=== PATIENT | male | born 1935 | race Hispanic/Latino ===

== ENCOUNTER 2017-09-03 05:18 | Emergency (ER) | payer MEDICARE ==
[~2017-09-03] VITALS: Ht 162.6 cm; Wt 74.8 kg
[~2017-09-03 05:18] MED LIST: AVODART0.5 MG PO; CRESTOR10 MG PO; DIPHENHYDRAMINE25 M2 PO; LISINOPRIL2.5 MG PO; METFORMIN HCL500 M1 PO; METOPROLOL SUCC50 MG PO; OMEPRAZOLE40 MG PO; OXYBUTYNIN CHLOR5 MG PO; PLAVIX75 MG PO
[2017-09-03] MEDS ORDERED: METOPROLOL TART25 MG PO (05:35)
[2017-09-03] MEDS ORDERED: ASPIRIN81 MG PO (05:35)
[2017-09-03] MEDS ORDERED: FOLIC ACID1 MG PO (05:35)
[2017-09-03] MEDS ORDERED: DOXAZOSIN MESYLA2 MG PO (05:35)
[2017-09-03] MEDS ORDERED: NAPROXEN250 MG PO (05:35)
[2017-09-03 06:07] LABS: BILIRUBIN,URINE NEGATIVE (NEGATIVE); CLARITY,URINE CLEAR (CLEAR); COLOR,URINE YELLOW (YELLOW); KETONES,URINE NEGATIVE (NEGATIVE); LEUKOCYTE ESTERASE ,URINE 1+ (NEGATIVE); NITRITE,URINE NEGATIVE (NEGATIVE); PROTEIN,URINE DIPSTICK NEGATIVE (NEGATIVE); URINE UROBILINOGEN 1 mg/dL (0.2 - 1)
[2017-09-03 06:16] LABS: EPITHELIAL CELLS,URINE RARE /LPF
[2017-09-03 06:17] LABS: RBC,URINE 0-5 /HPF (0-5); TRANSITIONAL EPI CELLS,URINE RARE
[2017-09-03 06:24] VITALS: BP 172/81
== END 2017-09-03 06:38 | disposition home or self-care (01) ==
LOC: ER 05:18
DX: R30.0 Dysuria (principal); N30.90 Cystitis, unspecified without hematuria; I10 Essential (primary) hypertension; E11.9 Type 2 diabetes mellitus without complications; Z86.73 Personal history of transient ischemic attack (TIA), and cerebral infarction without residual deficits
CPT/HCPCS: 81001; 87086; 99283

== ENCOUNTER 2017-10-23 06:54 | Emergency (ER) | payer MEDICARE ==
[~2017-10-23] VITALS: Ht 162.6 cm; Wt 74.8 kg
[~2017-10-23 06:54] MED LIST changes: +ASPIRIN81 MG PO; +DOXAZOSIN MESYLA2 MG PO; +FOLIC ACID1 MG PO; +METOPROLOL TART25 MG PO; +NAPROXEN250 MG PO
[2017-10-23 07:34] LABS: BASOPHILS % 0.5 % (0.0-1.0); EOSINOPHILS # (AUTO) 0.2 (0.0-0.4); HEMATOCRIT 33.9 % (38.2-49.6); HEMOGLOBIN 11.2 g/dL (14.0-18.0); LYMPHOCYTES % 15.4 % (18.0-39.1); MEAN CORPUSCULAR HEMOGLOBIN 30.9 pg (28-32); MEAN CORPUSCULAR VOLUME 93.6 fL (81-99); MONOCYTES # (AUTO) 0.5 (0.2-0.8); NEUTROPHILS # (AUTO) 4.7 (2.1-6.9); NEUTROPHILS % 73.9 % (38.7-80.0); PLATELET COUNT 188 x10e3/uL (140-360); RED BLOOD COUNT 3.62 x10e6/uL (4.3-5.7); RED CELL DISTRIBUTION WIDTH 13.8 % (11.7-14.4)
[2017-10-23 07:48] LABS: CLARITY,URINE CLEAR (CLEAR); COLOR,URINE YELLOW (YELLOW)
[2017-10-23 07:49] LABS: BILIRUBIN,URINE NEGATIVE (NEGATIVE); KETONES,URINE TRACE (NEGATIVE); LEUKOCYTE ESTERASE ,URINE NEGATIVE (NEGATIVE); NITRITE,URINE NEGATIVE (NEGATIVE); PROTEIN,URINE DIPSTICK NEGATIVE (NEGATIVE); URINE UROBILINOGEN 1 mg/dL (0.2 - 1)
[2017-10-23 07:50] LABS: BACTERIA,URINE RARE /HPF; EPITHELIAL CELLS,URINE FEW /LPF; WBC,URINE (MAN) 0-5 /HPF (0-5)
[2017-10-23 07:54] LABS: ANION GAP 14.5 mmol/L (8-16); BLOOD UREA NITROGEN 13 mg/dL (7-26); BUN/CREATININE RATIO 15 (6-25); CALCIUM 9.1 mg/dL (8.4-10.2); CARBON DIOXIDE 21 mmol/L (22-29); CHLORIDE 109 mmol/L (98-107); CREATININE, SERUM 0.87 mg/dL (0.72-1.25); EST GLOMERULAR FILTRATION RATE > 60 ML/MIN (60-); GLUCOSE 125 mg/dL (74-118); POTASSIUM 3.5 mmol/L (3.5-5.1); SODIUM 141 mmol/L (136-145)
[2017-10-23] MEDS ORDERED: FLOMAX0.4 MG PO (08:44)
--- NOTE | 2017-10-23 09:56 | Diagnostic Imaging Report ---
PROCEDURE: CT ABDOMEN AND PELVIS WITH CONTRAST TECHNIQUE: The abdomen and pelvis were scanned utilizing a multidetector helical scanner from the diaphragm to the lesser trochanter after the IV administration of 100 cc of Isovue 370 and the oral administration of water. Coronal and sagittal multiplanar reformations were obtained. Dose reduction parameters were utilized. DLP: 586.84 mGy-cm COMPARISON: None. INDICATIONS: ABDOMEN PAIN FINDINGS: LOWER THORAX: Incompletely visualized right basilar opacity likely secondary to atelectasis. HEPATOBILIARY: No focal hepatic lesions. No biliary ductal dilatation. SPLEEN: No splenomegaly. PANCREAS: No focal masses or ductal dilatation. 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 KIDNEYS/URETERS: No hydronephrosis, stones or solid mass lesions. Right posterior interpole renal cyst. Exophytic cystic lesion involving the left lower pole is too small to characterize but also likely a cyst. PELVIC ORGANS/BLADDER: There is a Scott catheter within the bladder. PERITONEUM / RETROPERITONEUM: No free air or fluid. LYMPH NODES: No lymphadenopathy. VESSELS: Atherosclerotic calcification. Accessory right renal artery. GI TRACT: No distention or wall thickening. BONES AND SOFT TISSUES: Degenerative changes of the spine. IMPRESSION: 1. Fat containing right adrenal mass compatible with a benign process. 2. Multiple renal cystic lesions. 3. No acute abdominal or pelvic abnormality. Steve Solorio D.O. Dictated by: Steve Solorio D.O. on 10/23/2017 at 10:02 Electronically approved by: Steve Solorio D.O. on 10/23/2017 at 10:02
[2017-10-23] MEDS ORDERED: SODIUM CHLORIDE 0.9% 50ML 50 ML ONE (14:28)
[2017-10-23] MEDS ORDERED: IOPAMIDOL 370 MG/ML 200 ML INFUS..BTL INJ ONE (14:29)
== END 2017-10-23 10:37 | disposition home or self-care (01) ==
LOC: ER 06:54
DX: R10.30 Lower abdominal pain, unspecified (principal); R30.0 Dysuria; R33.9 Retention of urine, unspecified; N40.1 Benign prostatic hyperplasia with lower urinary tract symptoms
CPT/HCPCS: 36415; 51700; 74177; 80048; 81001; 85025; 87086; 99284; Q9967

== ENCOUNTER 2017-11-02 08:14 | Emergency (ER) | payer MEDICARE ==
[~2017-11-02] VITALS: Ht 162.6 cm; Wt 74.8 kg
[~2017-11-02 08:14] MED LIST changes: +FLOMAX0.4 MG PO
[2017-11-02] MEDS ORDERED: SODIUM CHLORIDE 0.9% 1000ML 1,000 ML IV STA (08:42)
[2017-11-02] MEDS ORDERED: MORPHINE SULFATE 2 MG/ML SYR IV STA (08:42)
[2017-11-02] MEDS ORDERED: ONDANSETRON HCL INJ 2 MG/ML VIAL IV STA (08:42)
[2017-11-02 09:14] LABS: BASOPHILS % 0.3 % (0.0-1.0); EOSINOPHILS # (AUTO) 0.3 (0.0-0.4); EOSINOPHILS % 4.6 % (0.0-6.0); HEMATOCRIT 33.9 % (38.2-49.6); HEMOGLOBIN 11.1 g/dL (14.0-18.0); LYMPHOCYTES # (AUTO) 0.7 (1.0-3.2); LYMPHOCYTES % 11.8 % (18.0-39.1); MEAN CORPUSCULAR HEMOGLOBIN 30.8 pg (28-32); MEAN CORPUSCULAR HGB CONC 32.7 g/dL (31-35); MEAN CORPUSCULAR VOLUME 94.2 fL (81-99); MONOCYTES # (AUTO) 0.4 (0.2-0.8); MONOCYTES % 6.5 % (4.4-11.3); NEUTROPHILS # (AUTO) 4.5 (2.1-6.9); NEUTROPHILS % 76.6 % (38.7-80.0); PLATELET COUNT 148 x10e3/uL (140-360); RED CELL DISTRIBUTION WIDTH 13.8 % (11.7-14.4)
[2017-11-02 09:22] LABS: CLARITY,URINE HAZY (CLEAR); COLOR,URINE RED (YELLOW); LEUKOCYTE ESTERASE ,URINE 1+ (NEGATIVE); NITRITE,URINE NEGATIVE (NEGATIVE)
[2017-11-02 09:23] LABS: BILIRUBIN,URINE NEGATIVE (NEGATIVE); KETONES,URINE NEGATIVE (NEGATIVE); PROTEIN,URINE DIPSTICK 2+ (NEGATIVE); URINE UROBILINOGEN 0.2 mg/dL (0.2 - 1)
[2017-11-02 09:30] LABS: ANION GAP 12.4 mmol/L (8-16); BLOOD UREA NITROGEN 10 mg/dL (7-26); BUN/CREATININE RATIO 11 (6-25); CALCIUM 9.1 mg/dL (8.4-10.2); CARBON DIOXIDE 23 mmol/L (22-29); CHLORIDE 107 mmol/L (98-107); CREATININE, SERUM 0.91 mg/dL (0.72-1.25); EST GLOMERULAR FILTRATION RATE > 60 ML/MIN (60-); GLUCOSE 107 mg/dL (74-118); POTASSIUM 3.4 mmol/L (3.5-5.1); SODIUM 139 mmol/L (136-145)
[2017-11-02 09:39] LABS: BACTERIA,URINE FEW /HPF; EPITHELIAL CELLS,URINE FEW /LPF; RBC,URINE 21-50 /HPF (0-5); WBC,URINE (MAN) 21-50 /HPF (0-5)
[2017-11-02 09:40] LABS: AMORPHOUS SEDIMENT,URINE MANY (FEW)
[2017-11-02] MEDS ORDERED: CEFTRIAXONE SOD 1 GM VIAL IV ONE (10:00)
== END 2017-11-02 10:24 | disposition home or self-care (01) ==
LOC: ER 08:14
DX: N30.01 Acute cystitis with hematuria (principal); I10 Essential (primary) hypertension; E11.9 Type 2 diabetes mellitus without complications; Z86.73 Personal history of transient ischemic attack (TIA), and cerebral infarction without residual deficits
CPT/HCPCS: 36415; 80048; 81001; 85025; 87086; 87186; 99284; J0696; J2270; J2405; J7030

== ENCOUNTER 2017-11-26 13:41 | Emergency (ER) | payer MEDICARE ==
[~2017-11-26] VITALS: Ht 162.6 cm; Wt 68.0 kg
[2017-11-26 14:09] LABS: BILIRUBIN,URINE NEGATIVE (NEGATIVE); CLARITY,URINE CLEAR (CLEAR); COLOR,URINE YELLOW (YELLOW); KETONES,URINE NEGATIVE (NEGATIVE); LEUKOCYTE ESTERASE ,URINE TRACE (NEGATIVE); NITRITE,URINE NEGATIVE (NEGATIVE); PROTEIN,URINE DIPSTICK TRACE (NEGATIVE); URINE UROBILINOGEN 1 mg/dL (0.2 - 1)
[2017-11-26 14:27] LABS: BACTERIA,URINE FEW /HPF; EPITHELIAL CELLS,URINE FEW /LPF
[2017-11-26 15:23] LABS: BASOPHILS % 0.4 % (0.0-1.0); EOSINOPHILS # (AUTO) 0.3 (0.0-0.4); EOSINOPHILS % 4.1 % (0.0-6.0); HEMOGLOBIN 12.7 g/dL (14.0-18.0); LYMPHOCYTES % 14.8 % (18.0-39.1); MEAN CORPUSCULAR HEMOGLOBIN 29.8 pg (28-32); MEAN CORPUSCULAR HGB CONC 33.4 g/dL (31-35); MEAN CORPUSCULAR VOLUME 89.2 fL (81-99); MONOCYTES # (AUTO) 0.5 (0.2-0.8); MONOCYTES % 7.7 % (4.4-11.3); NEUTROPHILS % 72.6 % (38.7-80.0); PLATELET COUNT 207 x10e3/uL (140-360); RED BLOOD COUNT 4.26 x10e6/uL (4.3-5.7)
--- NOTE | 2017-11-26 15:39 | Diagnostic Imaging Report ---
Exam: Abdominal film upright and spine Clinical History: Constipation abdominal pain Comparison: None. DISCUSSION: Frontal view of the abdomen shows a nonobstructive bowel gas pattern with moderate amount of retained stool. No free air No dilated, air-filled loops of bowel. No abnormal calcifications. No acute bone abnormality. IMPRESSION: 1. Nonobstructive bowel gas pattern. Signed by: Dr. Alex Simental M.D. on 11/26/2017 3:36 PM
[2017-11-26 15:45] LABS: ALANINE AMINOTRANSFERASE 11 IU/L (0-55); ALBUMIN 3.7 g/dL (3.5-5.0); ALBUMIN/GLOBULIN RATIO 0.9 (0.8-2.0); ALKALINE PHOSPHATASE 116 IU/L (40-150); ANION GAP 16.6 mmol/L (8-16); BLOOD UREA NITROGEN 13 mg/dL (7-26); BUN/CREATININE RATIO 13 (6-25); CALCIUM 10.1 mg/dL (8.4-10.2); CARBON DIOXIDE 21 mmol/L (22-29); CHLORIDE 105 mmol/L (98-107); CREATININE, SERUM 0.97 mg/dL (0.72-1.25); EST GLOMERULAR FILTRATION RATE > 60 ML/MIN (60-); GLUCOSE 118 mg/dL (74-118); POTASSIUM 3.6 mmol/L (3.5-5.1); SODIUM 139 mmol/L (136-145)
[2017-11-26 15:52] VITALS: BP 150/85
== END 2017-11-26 15:59 | disposition home or self-care (01) ==
LOC: ER 13:41
DX: R10.32 Left lower quadrant pain (principal); K59.00 Constipation, unspecified; I10 Essential (primary) hypertension; E11.9 Type 2 diabetes mellitus without complications; E78.5 Hyperlipidemia, unspecified; I69.851 Hemiplegia and hemiparesis following other cerebrovascular disease affecting right dominant side
CPT/HCPCS: 36415; 80053; 81001; 85025; 99283

== ENCOUNTER 2018-07-17 10:45 | Emergency (ER) | payer MEDICARE ==
[~2018-07-17] VITALS: Ht 162.6 cm; Wt 68.0 kg
--- OUTSIDE RECORDS SUMMARY | 2018-07-17 10:48 | XMS REPORT | Clinical Summary ---
Author Author [facility] Organization [facility] Address Unknown Phone Unavailable Care Team Providers Care Utilization Specialist Name Role Phone Amador Munoz MD PCP Allergies No Known Allergies Medications End Date Status Medication Sig Dispensed Refills Start Date Active aspirin (ECOTRIN) 81 MG TOME JOSEFINA 0 enteric coated tablet TABLETA POR 7 V?A ORAL TODOS LOS D? Active FREESTYLE LITE STRIPS TEST DOS 0 strip test strips VECES AL D?A 7 Active clopidogrel (PLAVIX) 75 TOME JOSEFINA 0 mg tablet TABLETA POR 7 V?A ORAL TODOS LOS D? Active doxazosin (CARDURA) 2 MG TOME JOSEFINA 0 tablet TABLETA POR 7 V?A ORAL TODOS LOS D? Active metFORMIN XR TOME JOSEFINA 1 (GLUCOPHAGE-XR) 500 mg 24 TABLETA POR 8 hr tablet V?A ORAL TODOS LOS D? Active metoprolol tartrate TAKE 1/2 0 (LOPRESSOR) 25 mg tablet TABLET POR 8 V?A ORAL TODOS LOS D? Active naproxen (NAPROSYN) 500 TOME JOSEFINA 0 MG tablet TABLETA POR 8 V?A ORAL DOS VECES AL D?A Active nystatin (MYCOSTATIN) APPLY TERRY 1 100,000 unit/gram cream VECES AL D?A 8 Active olopatadine (PATANOL) 0.1 INSTILL 1 0 % ophthalmic solution DROP DOS 7 VECES AL D?A IN EACH AFFECTED EYE Active oxybutynin XL TOME JOSEFINA 0 (DITROPAN-XL) 10 MG 24 hr TABLETA POR 7 tablet V?A ORAL TODOS LOS D? Active PREVNAR 13, PF, 0.5 mL DEBE SER 0 vaccine ADMINISTRADO 7 POR UN FARMAC?UTICO PARA INMUNIZACI?N Active rosuvastatin (CRESTOR) 10 TOME JOSEFINA 1 MG tablet TABLETA POR 7 V?A ORAL AL ACOSTARSE Active dutasteride (AVODART) 0.5 TOME JOSEFINA 0 mg capsule CAPSULA POR 7 V?A ORAL TODOS LOS D? Active Problems Problem Noted Date Sensorineural hearing loss (SNHL) of both ears 04/01/2017 Social History Date Tobacco Use Types Packs/Day Years Used Never Smoker Smokeless Tobacco: Never Used Alcohol Use Drinks/Week oz/Week Comments No Sex Assigned at Date Recorded Not on file Industry Job Start Date Occupation Not on file Not on file Not on file Travel End Travel History Travel Start No recent travel history available. Last Filed Vital Signs Not on file Plan of Treatment Health Maintenance Due Date Last Done Comments SHINGLES VACCINES (#1) 05/25/1987 65+ PNEUMOCOCCAL VACCINE 2002 (1 of 2 - PCV13) PNEUMOCOCCAL 2002 POLYSACCHARIDE VACCINE AGE 65 AND OVER INFLUENZA VACCINE 09/24/2018 Results Not on fileafter 07/16/2017 Insurance Type Payer Benefit Subscriber ID Effective Phone Address Plan / Dates Group HMO [employer] CIGNA xxxxxxxxx [id number] [facility] AD[facility] Advance Directives Patient has advance care planning documents on file. For more information, faraz e contact: Nahid Fitzgerald [address] [place] [address]
[2018-07-17 13:11] LABS: BASOPHILS % 0.6 % (0.0-1.0); EOSINOPHILS # (AUTO) 0.3 (0.0-0.4); EOSINOPHILS % 5.1 % (0.0-6.0); HEMATOCRIT 40.1 % (38.2-49.6); HEMOGLOBIN 13.3 g/dL (14.0-18.0); LYMPHOCYTES # (AUTO) 1.1 (1.0-3.2); LYMPHOCYTES % 21.8 % (18.0-39.1); MEAN CORPUSCULAR HEMOGLOBIN 31.7 pg (28-32); MEAN CORPUSCULAR HGB CONC 33.2 g/dL (31-35); MEAN CORPUSCULAR VOLUME 95.5 fL (81-99); MONOCYTES # (AUTO) 0.4 (0.2-0.8); MONOCYTES % 7.8 % (4.4-11.3); NEUTROPHILS # (AUTO) 3.3 (2.1-6.9); NEUTROPHILS % 64.5 % (38.7-80.0); PLATELET COUNT 127 x10e3/uL (140-360); RED CELL DISTRIBUTION WIDTH 13.2 % (11.7-14.4)
[2018-07-17 13:22] LABS: INR 0.93
[2018-07-17 13:23] LABS: PARTIAL THROMBOPLASTIN TIME 27.7 seconds (23.8-35.5)
[2018-07-17 13:31] LABS: ALANINE AMINOTRANSFERASE 11 IU/L (0-55); ALBUMIN 3.9 g/dL (3.5-5.0); ALBUMIN/GLOBULIN RATIO 1.4 (0.8-2.0); ALKALINE PHOSPHATASE 75 IU/L (40-150); ANION GAP 10.9 mmol/L (8-16); BLOOD UREA NITROGEN 15 mg/dL (7-26); BUN/CREATININE RATIO 16 (6-25); CALCIUM 9.5 mg/dL (8.4-10.2); CARBON DIOXIDE 23 mmol/L (22-29); CHLORIDE 111 mmol/L (98-107); CREATININE, SERUM 0.93 mg/dL (0.72-1.25); EST GLOMERULAR FILTRATION RATE > 60 ML/MIN (60-); GLUCOSE 95 mg/dL (74-118); POTASSIUM 3.9 mmol/L (3.5-5.1); SODIUM 141 mmol/L (136-145)
--- NOTE | 2018-07-17 14:02 | Diagnostic Imaging Report ---
Exam: Pelvis single frontal view History: Hip pain, concern for fracture Comparison: 11/26/2017 Findings: No acute, displaced fracture or dislocations. Femoral heads project appropriately over the acetabula. 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 Degenerative changes of the sacroiliac joints and lumbar spine partially visualized. Atherosclerotic vascular calcifications. Impression: No acute osseous abnormalities. Signed by: Dr. Chaz Ventura M.D. on 07/17/2018 1:59 PM
[2018-07-17 14:43] VITALS: BP 166/66
== END 2018-07-17 14:45 | disposition home or self-care (01) ==
LOC: ER 10:45
DX: M25.552 Pain in left hip (principal); M54.32 Sciatica, left side
CPT/HCPCS: 36415; 72170; 80053; 85025; 85610; 85730; 93971; 99284

== ENCOUNTER 2020-11-02 14:33 | Emergency (ER) | payer MEDICARE ==
[~2020-11-02] VITALS: Ht 162.6 cm; Wt 68.0 kg
[2020-11-02] MEDS ORDERED: ACETAMINOPHEN 325 MG TAB PO STA (19:37)
[2020-11-02 20:41] VITALS: BP 124/82
== END 2020-11-02 20:44 | disposition home or self-care (01) ==
LOC: ER 14:40
DX: M25.521 Pain in right elbow (principal); R07.81 Pleurodynia; I10 Essential (primary) hypertension; E11.9 Type 2 diabetes mellitus without complications; E78.5 Hyperlipidemia, unspecified; K21.9 Gastro-esophageal reflux disease without esophagitis; Z86.73 Personal history of transient ischemic attack (TIA), and cerebral infarction without residual deficits
CPT/HCPCS: 71101; 73200; 99284